=== PATIENT | male | born 1975 | race Caucasian/White ===

== ENCOUNTER 2016-08-03 22:15 | Emergency (ER) | payer BC ==
[~2016-08-03] VITALS: Ht 185.4 cm; Wt 80.8 kg
--- OUTSIDE RECORDS SUMMARY | 2016-08-03 22:28 | XMS REPORT | Referral Summary ---
Author Author [facility], [facility] Care Organization [facility] Address Unknown Phone Unavailable Care Team Providers Care Slots Manager Name Role Phone Stephen Cronin Primary Care Physician [phone] Encounter Date(s): 05/27/15 - 05/27/15 [facility] [address] [place] [id number] Discharge Diagnosis: Muscle strain of left gluteal region Discharge Diagnosis: Left buttock pain Discharge Disposition: 01-Home or Self Care Attending Physician: Pasha Hernandez PA-C Admitting Physician: Pasha Hernandez PA-C Vital Signs Most recent to 1 oldest [Reference Range]: Temperature Tympanic 36.7 degC [36.6-38.1 degC] (05/27/15 1:08 PM) Peripheral Pulse 101 bpm Rate [60-100 bpm] *HI* (05/27/15 1:08 PM) Blood Pressure 110/68 mmHg [90-140/60-90 mmHg] (05/27/15 1:08 PM) SpO2 97 % (05/27/15 1:08 PM) Problem List Condition Effective Dates Status Health Status Informant Neck pain(Confirmed) Resolved Pneumonia(Confirmed) 2005 Resolved Allergies, Adverse Reactions, Alerts Substance Reaction Severity Status clindamycin Active Medications ibuprofen 0 Refill(s) Start Date: 05/27/15 Status: Ordered Wellbutrin Oral, 0 Refill(s) Start Date: 05/27/15 Status: Ordered Results No data available for this section Immunizations No data available for this section Procedures Procedure Date Related Diagnosis Body Site Diskectomy1 2011 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 Patients can avoid activities to aggravate his symptoms, he does not have pain with weightbearing so no crutches were initiated. We'll increase ibuprofen to 600 mg3-4 times a day with food.Patient denied history of GI ulcers, indigestion history of hypertension or cardiac disease. He develops any of these he'll cease taking anti-inflammatory. I recommended follow-up with primary care still having significant discomfort or worsening discomfort in the next day or 2. If him a handout for stretch and strengthening exercises to begin in 7-10 days when his pain improves. Note was given for work as he missed work yesterday. Diagnosis and treatment discussed. Patient advised to follow up with PCP in 2- 3 days. Patient stable upon discharge, alert and orientated with no apparent distress, and indicated understanding of discharge instructions. If symptoms worsen at any time, patient will go to the nearest ER for further evaluation. Addendum I reviewed this chart, the patient's medical history, and the by Tressa, Resident's/PATIENT APPOINTMENT COORDINATOR's/PA/RN's/PharmD's documented findings, and concur with the assessment and Angelito Mitchell plan as above. 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
--- OUTSIDE RECORDS SUMMARY | 2016-08-03 22:28 | XMS REPORT | Referral Summary ---
Author Author [facility] Care Organization [facility] Address Unknown Phone Unavailable Care Team Providers Care Yeast Culture Developer Name Role Phone Stephen Cronin Primary Care Physician [phone] Encounter [facility] [id number] Date(s): 12/20/15 - 12/20/15 [facility] [address] [place] [address] Discharge Diagnosis: Sore throat Discharge Diagnosis: Left eye pain Discharge Diagnosis: Nausea Discharge Disposition: 01-Home or Self Care Attending Physician: Pasha Hernandez PA-C Admitting Physician: Pasha Hernandez PA-C Vital Signs Most recent to 1 oldest [Reference Range]: Temperature Tympanic 36.8 degC [36.6-38.1 degC] (12/20/15 2:24 PM) Peripheral Pulse 82 bpm Rate [60-100 bpm] (12/20/15 2:24 PM) Blood Pressure 110/74 mmHg [90-140/60-90 mmHg] (12/20/15 2:24 PM) SpO2 97 % (12/20/15 2:24 PM) Problem List Condition Effective Dates Status Health Status Informant Neck pain(Confirmed) Resolved Pneumonia(Confirmed) 2005 Resolved Allergies, Adverse Reactions, Alerts Substance Reaction Severity Status clindamycin Active Medications Excedrin tabs, Oral, q6hr, 0 Refill(s) Start Date: 12/20/15 Status: Ordered Tylenol Caplet mg, Oral, q4hr, 0 Refill(s) Start Date: 12/20/15 Status: Ordered Results No data available for this section Immunizations No data available for this section Procedures Procedure Date Related Diagnosis Body Site Diskectomy1 2011 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 A work note was provided. Nausea Currently resolved, patient declined need for antiemetic. Sore throat Recommended conservative treatment at this time; over the counterCepacol, Tylenol, push fluids. If he continues to have worsening symptoms, ifpain becomes worse, if he's unable to swallow; he needs to follow- up with his primary care for additional assessment and possible imaging.
--- OUTSIDE RECORDS SUMMARY | 2016-08-03 22:28 | XMS REPORT | Referral Summary ---
Author Author [facility] Care Organization [facility] Address Unknown Phone Unavailable Care Team Providers Care Defence Force Member Other Ranks Name Role Phone Stephen Cronin Primary Care Physician [phone] Encounter [facility] [id number] Date(s): 05/09/15 - 05/09/15 [facility] [address] [place] [id number] Discharge Diagnosis: Headache Discharge Diagnosis: Sore throat Discharge Disposition: 01-Home or Self Care Attending Physician: Pasha Hernandez PA-C Admitting Physician: Pasha Hernandez PA-C Vital Signs Most recent to 1 oldest [Reference Range]: Temperature Tympanic 36.6 degC [36.6-38.1 degC] (05/09/15 3:14 PM) Apical Heart Rate 85 bpm [60-100 bpm] (05/09/15 3:14 PM) Blood Pressure 118/74 mmHg [90-140/60-90 mmHg] (05/09/15 3:14 PM) SpO2 98 % (05/09/15 3:14 PM) Problem List Condition Effective Dates Status Health Status Informant Neck pain(Confirmed) Resolved Pneumonia(Confirmed) 2005 Resolved Allergies, Adverse Reactions, Alerts Substance Reaction Severity Status clindamycin Active Medications No Known Medications Results No data available for this section Immunizations No data available for this section Procedures Procedure Date Related Diagnosis Body Site Diskectomy1 2011 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
--- OUTSIDE RECORDS SUMMARY | 2016-08-03 22:28 | XMS REPORT | Referral Summary ---
Author Author [facility], [facility] Care Organization [facility] Address Unknown Phone Unavailable Care Team Providers Care Packing And Final Assembly Supervisor Name Role Phone Stephen Cronin Primary Care Physician [phone] Encounter Date(s): 06/01/16 - 06/01/16 [facility], [address] [place] [address] Discharge Disposition: 01-Home or Self Care Attending Physician: Pasha Hernandez PA-C Admitting Physician: Pasha Hernandez PA-C Vital Signs Most recent to 1 oldest [Reference Range]: Temperature Tympanic 36.7 degC [36.6-38.1 degC] (06/01/16 1:21 PM) Peripheral Pulse 83 bpm Rate [60-100 bpm] (06/01/16 1:21 PM) Blood Pressure 112/72 mmHg [90-140/60-90 mmHg] (06/01/16 1:21 PM) SpO2 95 % (06/01/16 1:21 PM) Problem List Condition Effective Dates Status Health Status Informant Neck pain(Confirmed) Resolved Pneumonia(Confirmed) 2005 Resolved Sinus Active infections(Confirmed ) Allergies, Adverse Reactions, Alerts Substance Reaction Severity Status clindamycin Active Medications Lotrisone 1%-0.05% topical cream 1 osvaldo, Topical, BID, prescribed by Dr. 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 This infection is not caused by worms, but is actually caused by a fungus. Fungus normally lives on the top of your skin and can be useful. However, in the case of ringworms, the fungus grows out of control and causes a skin infection. It can involve any area of skin on the body and can spread easily from one person to another (contagious). Ringworm is a common problem for children, but it can affect adults as well. Ringworm is also often found in athletes, especially wrestlers who share equipment and mats. CAUSES Ringworm of the body is caused by a fungus called dermatophyte. It can spread by : Touchingother people who are infected. Touchinginfected pets. Touching or sharingobjects that have been in contact with the infected person or pet (hats, case, towels, clothing, sports equipment). SYMPTOMS Itchy, raised red spots and bumps on the skin. Ring-shaped rash. Redness near the border of the rash with a clear center. Dry and scaly skin on or around the rash. Not every person develops a ring-shaped rash. Some develop only the red, scaly patches. DIAGNOSIS Most often, ringworm can be diagnosed by performing a skin exam. Your caregiver may choose to take a skin scraping from the affected area. The sample will be examined under the microscope to see if the fungus is present. TREATMENT Body ringworm may be treated with a topical antifungal cream or ointment. Sometimes, an antifungal shampoo that can be used on your body is prescribed. You may be prescribed antifungal medicines to take by mouth if your ringworm is severe, keeps coming back, or lasts a long time. HOME CARE INSTRUCTIONS Only take nbrw-orn-jiidudy or prescription medicines as directed by your caregiver. Wash the infected area and dry it completely before applying yourcream or ointment. When using antifungal shampoo to treat the ringworm, leave the shampoo on the body for 35 minutes before rinsing. Wear loose clothing to stop clothes from rubbing and irritating the rash. Wash or change your bed sheets every night while you have the rash. Have your pet treated by your applications systems engineer if it has the same infection. To prevent ringworm: Practice good hygiene. Wear sandals or shoes in public places and showers. Do not share personal items with others. Avoid touching red patches of skin on other people. Avoid touching pets that have bald spots or wash your hands after doing so. SEEK MEDICAL CARE IF: Your rash continues to spread after 7 days of treatment. Your rash is not gone in 4 weeks. The area around your rash becomes red, warm, tender, and swollen. This information is not intended to replace advice given to you by your health care provider. Make sure you discuss any questions you have with your health care provider. Document Released: 04/19/2001 Document Revised: 01/14/2013 Document Reviewed: [employer] Interactive Patient Education 2016 [employer] No follow up information was provided.
--- OUTSIDE RECORDS SUMMARY | 2016-08-03 22:28 | XMS REPORT | Referral Summary ---
Author Author [facility], [facility] Organization [facility] Address Unknown Phone Unavailable Care Team Providers Care Overhead Distribution Engineer Name Role Phone Stephen Cronin Primary Care Physician [phone] Encounter Date(s): 06/03/15 - 06/03/15 [facility] [address] [place] [address] Discharge Disposition: 01-Home or Self Care Attending Physician: Kishan Corea APRN Admitting Physician: Kishan Corea APRN Vital Signs Most recent to 1 oldest [Reference Range]: Temperature Tympanic 36.7 degC [36.6-38.1 degC] (06/03/15 1:23 PM) Peripheral Pulse 85 bpm Rate [60-100 bpm] (06/03/15 1:23 PM) Blood Pressure 122/62 mmHg [90-140/60-90 mmHg] (06/03/15 1:23 PM) SpO2 97 % (06/03/15 1:23 PM) Problem List Condition Effective Dates Status [...] use per day: Pack Assessment and Plan No data available for this section
--- OUTSIDE RECORDS SUMMARY | 2016-08-03 22:28 | XMS REPORT | Continuity of Care Document ---
Author Author [facility] Organization [facility] Address Unknown Phone Unavailable Allergies Active Description Code Type Severity Reaction Onset Reported/Identified Relationship to Patient Clinical Status Yes clindamycin NKMA N/A N/A 10/13/2013 Medications Problems Procedures Results Test Result Range ESAU - 06/01/16 13:39 Fluid Type Other NA Encounters ACCT No. Visit Date/Time Discharge Status Pt. Type Provider Facility Loc./Unit Complaint [id number] 06/01/2016 13:19:00 2016 23:59:00 DIS Outpatient Pasha Hernandez Via [facility] RASH [id number] 12/20/2015 14:16:00 2015 23:59:00 DIS Outpatient Pasha Hernandez [facility] SORE THROAT AND NAUSEA [id number] 08/26/2015 14:04:00 2015 23:59:00 DIS Outpatient Pasha Hernandez [facility] SORE THROAT AND HEADACHE [id number] 06/03/2015 13:12:00 2015 23:59:00 DIS Outpatient Kishan Corea [facility] HEADACHE [id number] 05/27/2015 13:02:00 2015 23:59:00 DIS Outpatient Pasha Hernandez [facility] HIP PAIN [id number] 05/09/2015 14:39:00 2015 23:59:00 DIS Outpatient Pasha Hernandez [facility] HEADACHE AND SINUS ISSUES
--- OUTSIDE RECORDS SUMMARY | 2016-08-03 22:28 | XMS REPORT | Referral Summary ---
Author Author [facility], [facility] Organization [facility] Address Unknown Phone Unavailable Care Team Providers Care Hydroelectric Powerplant Supervisor Name Role Phone Stephen Cronin Primary Care Physician [phone] Encounter Date(s): 08/26/15 - 08/26/15 [facility] [address] [place] [id number] Discharge Diagnosis: Viral URI Discharge Disposition: 01-Home or Self Care Attending Physician: Pasha Hernandez PA-C Admitting Physician: Pasha Hernandez PA-C Vital Signs Most recent to 1 oldest [Reference Range]: Temperature Tympanic 36.6 degC [36.6-38.1 degC] (08/26/15 2:06 PM) Peripheral Pulse 102 bpm Rate [60-100 bpm] *HI* (08/26/15 2:06 PM) Blood Pressure 104/72 mmHg [90-140/60-90 mmHg] (08/26/15 2:06 PM) SpO2 98 % (08/26/15 2:06 PM) Problem List Condition Effective Dates Status [...] Pack Assessment and Plan Extracted from: Title: sore throat, WASHBURN Author: Pasha Hernandez PA-C Date: 08/26/15 Assessment/Plan Viral URI Patient was given a note to return to work. If symptoms return follow-up for reassessment.
[2016-08-03] MEDS ORDERED: NO ROUTINE MEDS (22:34)
--- NOTE | 2016-08-03 22:43 | NUR ---
PT INFO SPOKE TO PT REGARDING STATEMENT MADE TO DAUGHTER ABOUT HURTING HIMSELF. PT REPORTS HE DID MOMENTARILY WANT TO HURT HIMSELF; HOWEVER, DENIES PLAN AT THIS TIME. PT STATES HE FEELS LIKE 'THINGS WERE SAID IN THE HEAT OF THE MOMENT'. WHEN ASKED IF HE'S HAD THESE FEELINGS TO HURT HIMSELF PRIOR TO THIS OCCURANCE, HE DENIES. HE DOES REPORT A HEIGHTENED SENSE OF STRESS OCCURRING AT HOME AND IN HIS LIFE RIGHT NOW INVOLVING HIS DAUGHTER. PT IS CALM, COOPERATIVE, AND SHOWS NO SIGN OF AGGRESSION OR AGITATION AT THIS TIME.
--- OUTSIDE RECORDS SUMMARY | 2016-08-03 22:46 | XMS REPORT | Continuity of Care Document ---
Author Author [facility] Organization [facility] Address Unknown Phone Unavailable Allergies Active Description Code Type Severity Reaction Onset Reported/Identified Relationship to Patient Clinical Status Yes clindamycin NKMA N/A N/A 10/13/2013 Medications Problems Procedures Results Test Result Range ESAU - 06/01/16 13:39 Fluid Type Other NA Encounters ACCT No. Visit Date/Time Discharge Status Pt. Type Provider Facility Loc./Unit Complaint [id number] 06/01/2016 13:19:00 2016 23:59:00 DIS Outpatient Pasha Hernandez [facility] RASH [id number] 12/20/2015 14:16:00 2015 23:59:00 DIS Outpatient Pasha Hernandez [facility] SORE THROAT AND NAUSEA [id number] 08/26/2015 14:04:00 2015 23:59:00 DIS Outpatient Pasha Hernandez [facility] SORE THROAT AND HEADACHE [id number] 06/03/2015 13:12:00 2015 23:59:00 DIS Outpatient Kishan Corea [facility] HEADACHE [id number] 05/27/2015 13:02:00 2015 23:59:00 DIS Outpatient Pasha Hernandez [facility] HIP PAIN [id number] 05/09/2015 14:39:00 2015 23:59:00 DIS Outpatient Pasha Hernandez [facility] HEADACHE AND SINUS ISSUES
[2016-08-03 23:13] VITALS: Ht 185.4 cm; Wt 80.8 kg
--- NOTE | 2016-08-03 23:27 | ERPDOC ---
Departure Disposition Decision Date: Aug 04, 2016 Disposition Decision Time: 00:05 Disposition: 01 DISCHARGED HOME, SELF-CARE Impression Impression Impression: Primary Impression: Suicidal thoughts Additional Impression: Adjustment disorder Adjustment disorder type: with mixed anxiety and depressed mood Qualified Codes: F43.23 - Adjustment disorder with mixed anxiety and depressed mood Severity: Moderate Condition: Improved Seen By: Physician only Referrals: MINH ESPINOZA DO (Family) 1 Week YOUR COUNSELOR 3 Days Patient Instructions: Suicide Prevention for Adults (ED) Problems/Meds/Labs Reviewed?: Yes Medications reviewed and manag: Yes Additional Instructions: You are having a normal reaction to an abnormal situation. For your own sake and the sake of your family, you need to follow up with a therapist who can help you deal with your current situation. If you have thoughts of harming yourself or others, you should discuss with your , call your therapist, call your doctor, call 911, call the suicide prevention hotline, or come to the ER. Follow up with your doctor in the next 1-2 weeks. Follow up care ordered?: Yes Mental Status: Alert, Oriented HPI - Psychosocial General Chief Complaint: Suicide Ideation/Attempt Stated Complaint: SUICIDAL THOUGHTS Time Seen by MD: 22:21 Source: patient, police, RN/MD Exam Limitations: no limitations HPI - Psychosocial Initial Comments 40yo man presented to the ER by PD for SI. Pt got into an argument with his daughter earlier citlali; he got so frustrated that he couldn't stand it anymore. Pt left the house and texted his that she could have his tools and that he was sorry. During a subsequent call, he told his that he was going to kill himself. Pt repeated same to the PD officer who responded. Initially, pt stated that he had a plan, but he would not divulge that plan to the responding officer or to his . Background: Pts ex left >10 years ago and took all of their children out of state. Pt was restricted from most contact with his children; pt could not get any relief through the courts. Ex- alienated all of the children from the pt. Fifteen months ago, pts daughter came to live with him and his . Pt initially placed appropriate boundaries around his daughter living with them, but she has steadily violated all of those boundaries. Pt is likely too aggressive with trying to renew this relationship with his now-adult daughter. (who is a counselor) has encouraged pt to seek counseling with daughter or on his own, since she is reluctant. Pt has not followed through with recommendations. Arguments and stress has spiraled since daughter came to live with them, and pt feels helpless again like when the children were first taken from him. All of this culminated in pts SI tonight. Pt does have a h/o SI, from when divorce/separation/alienation. He did attempt to take his life then with pills. He can articulate feelings from a splenic rupture several years ago, in which he nearly . That time, and knowing that he had no contact with his children and that they might without a chance of a relationship, has left a lasting impression on the pt. Occurred At: home Onset: Rapid Duration: 1-3 hrs Severity: moderate Associated Symptoms: suicidal ideation Hx of Similar Symptoms: Yes Allergies: Coded Allergies: clindamycin (Verified Allergy, Unknown, HIVES, 08/03/16) Past History Past Medical History Metabolic: hypercholesterolemia ENMT: dental problems Male: other Musculoskeletal: neck pain Psychological: depression, suicide attempt Surgical History General: neck Vaccines Hx Influenza Vaccination: No Hx Pneumococcal Vaccination: No Review of Systems Psychiatric Psychiatric: anxiety, depression, suicidal ideation/attempt All other Systems All Other Systems: Reviewed and Negative Physical Exam General General Nourishment: well nourished, well developed, appears stated age, no acute distress, adult, thin General Body Habitus: well groomed Vitals and Pain First Documented Vital Signs Date Time Temp Pulse Resp B/P Pulse Ox O2 Delivery O2 Flow Rate FiO2 08/03/16 22:36 82 148/70 96 Room Air 08/03/16 23:13 97.8 12 Weight: Kilograms: Height (feet): Height (inches): Triage Pain Scale: RN VS reviewed by Provider: Yes Normal Exams: Head: Normocephalic w/o trauma Eyes: Pupils are PERRLA w/ EOMI, No scleral icterus, irritation ENMT: No facial trauma, nasal exudates, pharyngeal erythema Neck: Full range of motion, without adenopathy, JVD Chest/Resp: Clear all jain, with good airflow, and symmetry bilaterally CV: Regular rate and rhythm, without murmur or gallop, Pulses 2+ all extremities Abdomen: Bowel sounds positive, soft, non-tender, non-distended Lymphatic: No lymphadenopathy Musculoskeletal: No tenderness, or deformity noted Integumentary: No rashes, hives, or bruising noted Neurologic: Patient is alert, and oriented Psychiatric: Patient exhibits, appropriate attention Differential Diagnoses Considering: Anxiety, Depression, Homicidal Ideation, Other Intoxication, Suicidal Ideation Progress Results/Orders Orders Procedure Category Date Status Time Ethanol LAB 08/03/16 Complete Drug Screen LAB 08/03/16 Complete Urine-Test At [place] 23:09 Lab Results Laboratory Tests Test 08/03/16 23:22 08/03/16 23:31 Alcohol, Quantitative <10MG/DL Urine Opiates Screen NegativeNG/ML Urine Oxycodone Screen NegativeNG/ML Urine Methadone Screen NegativeNG/ML Urine Propoxyphene Screen NegativeNG/ML Urine Barbiturates Screen NegativeNG/ML Urine Tricyclic Antidepressants NegativeNG/ML Urine Phencyclidine Screen NegativeNG/ML Urine Amphetamines Screen NegativeNG/ML Urine Methamphetamines Screen NegativeNG/ML Urine Benzodiazepines Screen NegativeNG/ML Urine Cocaine Screen NegativeNG/ML Urine Cannabinoids Screen NegativeNG/ML Progress Progress No SI/HI at this time. Pt is not intoxicated. Pt has contracted for safety; is in agreement with the plan. Will d/c pt to home with strong instructions to f/u with a therapist. Pt and voiced understanding and are in agreement with the plan. ADDY LOPEZ DO Aug 03, 2016 23:27
[2016-08-03 23:57] LABS: AMPHETAMINE SCREEN,URINE NEGATIVE; BARBITURATE SCREEN,URINE NEGATIVE; BENZODIAZEPINES SCREEN,URINE NEGATIVE; CANNABINOID SCREEN,URINE NEGATIVE; COCAINE SCREEN,URINE NEGATIVE; METHADONE SCREEN, URINE NEGATIVE; METHAMPHETAMINE SCREEN, URINE NEGATIVE; OPIATE SCREEN,URINE NEGATIVE; PHENCYCLIDINE SCREEN,URINE NEGATIVE; TRICYCLIC ANTIDEPRESSANT,URINE NEGATIVE
[2016-08-04 00:23] VITALS: BP 113/59; PULSE 77; RESP 16; TEMP 97.8; O2SAT 93
--- NOTE | 2016-08-04 00:23 | NUR ---
DEPART PT GIVEN DI FOR SUICIDE PREVENTION IN ADULTS, F/U. PT PROVIDED CARD FOR SUICIDE [facility]LINE AND [facility]. PT VERBALIZES UNDERSTANDING OF DI. QUESTIONS ASKED/ANSWERED - DENIES FURTHER QUESTIONS/NEEDS AT THIS TIME. PERSONAL BELONGINGS GATHERED AND RETURNED. PT AMBULATED/ESCORTED TO ED EXIT - GAIT STABLE, NO SIGN OF DISTRESS AT THIS TIME.
== END 2016-08-04 00:23 | disposition home or self-care (01) ==
LOC: ED 22:15
DX: F43.23 Adjustment disorder with mixed anxiety and depressed mood (principal)
CPT/HCPCS: 36415; 80306; 80307

== ENCOUNTER → 2016-08-22 | Outpatient (CLI) | payer BC ==
[~2016-08-22] MED LIST: NO ROUTINE MEDS
--- NOTE | 2016-08-23 08:34 | DI ---
Indication: ITS.REASON: M79.641 RIGHT HAND PAIN PROCEDURE: HAND RIGHT 3 VIEW: Encounter: Initial Comparison: None Findings: There is no acute fracture, dislocation or malalignment identified. Impression: No acute osseous abnormality. .
== END ==
LOC: IMA 16:56
PROVIDERS: ATTEND Family Medicine
DX: M79.641 Pain in right hand (principal)

== ENCOUNTER 2016-10-26 20:51 | Inpatient (IN) ==
[2016-10-26] MEDS ORDERED: NS 1,000 ML IV ONE (20:57)
[2016-10-26] MEDS ORDERED: ONDANSETRON 4 MG/2 ML INJECTION IVP ONE ×2 (20:57→22:34)
[2016-10-26] MEDS ORDERED: ACETYLCYSTEINE IV ONE ×2 (21:07→22:56)
[2016-10-26] MEDS ORDERED: D5W IV ONE ×2 (21:07→22:56)
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
[2016-10-26] MEDS ORDERED: KETOROLAC 30 MG/ML INJECTION IVP ONE (22:35)
[2016-10-26] MEDS ORDERED: NS 1,000 ML IV SCH (23:45)
[2016-10-27] MEDS: NS 1,000 ML IV SCH ×2 (01:32→13:56)
--- NOTE | 2016-10-27 02:52 | History & Physical Report ---
<Roberto Smart - Last Filed: 10/27/16 02:46> History of Present Illness Date: 10/27/16 Chief complaint: OD HPI: pleasant 41-year-old white male who this evening around 6;30 took 25 tablets of 5/325 mg of percocet. (8.125 grams of Tylenol) The percocets were his ' s from previous issues. this was an impulsive suicide attempt after interaction with his daughter. he denies any previous recent suicidal ideations and he denies making any plans to do this. when he was brought into the emergency room via ems his gcs was 14 satting 955 on room air and his heart rate was in the 50s. his tylenol level was undetectable, but based on the concern for his dose of greater than 8 g of tylenol, he was given a loading dose of n-acetylcysteine. he denies current suicidal ideations she is remorseful for the attempt. he in addition to his are providing history for me today. apparently he has a previous history of suicidal attempts. he denies a diagnosis history of depression or bipolar disorder. 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 - Social History Smoking status: Current every day smoker Packs per day: 2 Packs-years: 26 Substance use type: does not use Medications Home Medications Medication Instructions Recorded Confirmed Type NO ROUTINE MEDS #0 08/03/16 History Allergies Allergy/AdvReac Type Severity Reaction Status Date / Time clindamycin Allergy Unknown HIVES Verified 08/03/16 22:34 Exam Vital Signs: Temp Pulse Resp BP Pulse Ox 97.8 F 32 L 34 H 115/57 98 10/27/16 02:37 10/27/16 02:37 10/27/16 02:37 10/27/16 02:37 10/27/16 02:37 Telemetry Rhythm: Sinus Rhythm, A-fib with RVR, A-flutter Height: 1.85 m Weight: 75.8 kg Body Mass Index: 22.0 - Constitutional Present: no acute distress. Absent: combative, agitated - Routine HEENT Exam Head: Present: normocephalic, atraumatic Eye: Present: EOMI, PERRL. Absent: conjunctival icterus ENT: Present: mucous membranes moist - Routine Neck Exam Present: supple - Routine Respiratory Exam Present: CTA bilaterally. Absent: accessory muscle use - Routine Cardiovascular Exam Present: RRR, S1, S2 - Routine Abdominal Exam Present: soft, normoactive bowel sounds, non distended, non tender - Routine Extremities Exam Present: no edema. Absent: cyanosis, clubbing - Routine Neurological Exam Present: alert, oriented X3, CN II-XII intact - Routine Psychiatric Exam Present: normal affect (currently denies SI) Results - Labs CBC & Chem 7: 10/26/16 21:22 10/26/16 21:22 Assessment and Plan (1) Tylenol overdose Current visit: Yes Status: Acute his tylenol level was undetectable. the amount that he reportedly took was over 8 g, this would've been concerning for a toxic dose. however his 3 hour level was undetectable. a repeat in approximately 6 hours is also undetectable. going to discontinue the n-acetylcysteine at this time. monitor labs again in the morning. 10/27/16 03:03 (2) Suicide attempt Current visit: Yes Status: Acute he currently denies to me depression and denies any current suicidality. the amount of tylenol that he took certainly be enough to cause concern, however his tylenol level was undetectable. either he didn't take as much, he didn't take any, or it hasn't yet followed up which i think is unlikely as a repeat is also negative. 10/27/16 03:01 (3) Drug overdose Current visit: Yes Status: Acute (4) Opiate overdose Current visit: Yes Status: Acute there is a bit sleepy upon admission but his respiratory status was not compromised. 10/27/16 03:03 Sepsis Assessment - Evaluation Sepsis screening result: No Definite Risk Hospital Course Summary Disclaimer: The visit summary below is not to be considered part of the above Progress Note. <Jhony Tovar - Last Filed: 10/27/16 09:02> History of Present Illness Date: 10/27/16 [facility] Patient Stated Medical History Panic Disorder No Exam Vital Signs: Temp Pulse Resp BP Pulse Ox 97.8 F 51 L 10 96/53 98 10/27/16 02:37 10/27/16 06:45 10/27/16 06:45 10/27/16 06:30 10/27/16 06:45 Height: 6 ft 1 in Weight: 75.8 kg Results - Labs CBC & Chem 7: 10/27/16 06:11 10/27/16 06:11 Assessment and Plan (1) Drug overdose Current visit: Yes Status: Acute (2) Suicide attempt Current visit: Yes Status: Acute (3) Tylenol overdose Current visit: Yes Status: Acute (4) Opiate overdose Current visit: Yes Status: Acute Assessment and Plan: Pt was seen and examined and agree with above plan. Pt has some issues at home with his kids that recently moved out. He is a but is not a combat and denies H.O PTSD. He has a Psychologist that he follows with at [place] and takes celexa 20mg PO daily. Denies any H.O Thyroid illness. He is and his was in the room. VSS NC/AT TALA Chest clear RRR no murmurs Abdomen Soft NT/ND Ext no edema. Labs LFT's not elevated APAP level was not high. Pt got NAC by protoccol Plan 1) Suicidal gesture vs attempt. - Psych consult - Recheck LFT's in the AM - Start PO - If stable D/C Home tomorrow. - Check TSH due to bradycardia and depression. - Resume Celexa D/C Zofran. Hospital Course Summary Disclaimer: The visit summary below is not to be considered part of the above Progress Note.
[2016-10-27] MEDS ORDERED: ONDANSETRON 4 MG/2 ML INJECTION IVP PRN (03:07)
[2016-10-27] MEDS ORDERED: CITALOPRAM 20 MG TABLET PO SCH (09:00)
--- NOTE | 2016-10-27 12:38 | Neuropsychiatric Consult ---
[facility] Date: 10/27/16 Reason for Consultation: OD Start Time: 12:00 Stop Time: 12:30 History of Present Illness: HPI: 41 y/o cm admitted S/P OD on Percocet. Pt states he had an arguement with his daughter and just wanted to go to sleep. Pt states he is now very remorseful and states "it was dumb". Pt denies any S/I at this time and states he would not harm himself because of his family. STRESSORS: Arguement with daughter PSYCH ROS: Pt does report some depression but feels it is mild and situational. He denies feelings of hopelessness. Denies S/I. Reports some PIETER symptoms. Denies john or psychosis. PAST PSYCH: Pt has been seeing a therapist in [place] and is prescribed Celexa by his PCP. He denies ever trying to harm himself and has never been in a psychiatric hospital. SUBSTANCE ABUSE: Denies COLLATERAL: Spoke with patients privately who is a therapist. She states she feels the pt is safe to go home and she will help ensure his safety. No weapons or stock piled meds in the home. [facility] Patient Stated Medical History Panic Disorder No Surgical History: Splenectomy - Social History Smoking status: Current every day smoker Substance use type: does not use Review of Systems - Constitutional Constitutional: Present: as per HPI - Psychiatric Psychiatric: Present: as per [facility] Mental Status Exam Vitals: Last Vital Signs Temp 97.7 F 10/27/16 10:00 Pulse 58 L 10/27/16 12:00 Resp 51 H 10/27/16 12:00 BP 113/70 10/27/16 12:00 Pulse Ox 99 10/27/16 12:00 Height: 1.85 m Weight: 75.8 kg - Mental Status Exam Muscle Strength/Tone: Normal Dressing: Casual Grooming: Good Attitude: Cooperative Motor Activity: Normal Eye Contact: Good Speech: Normal Volume: Normal Rhythm: Appropriate Rhythm Orientation: Oriented X4 Mood: Neutral Affect: Depressed Rate of Thoughts: Appropriate Rate Thought Organization: Organized Associations: Intact Abstract Reasoning: Intact, able to abstract Computation: Intact Thought Content: Normal Perception/Psychotic: Perception Normal Fund of Knowledge: Appropriate Memory: Grossly Intact Suicidal Ideation: Denies Homicidal Ideation: Denies Insight: Good Judgement: Good Impulse Control: Good - Laboratory Result Diagrams: 10/27/16 06:11 10/27/16 06:11 Laboratory Results - last 24 hr 10/27/16 10/27/16 10/27/16 00:49 04:33 06:11 WBC RBC Hgb Hct MCV MCH MCHC RDW Std Deviation Plt Count MPV Immature Gran % (Auto) Neut % (Auto) Lymph % (Auto) [place] % (Auto) Eos % (Auto) Baso % (Auto) Neut # Lymph # [place] # Baso # Abs Immat Gran (auto) Neutrophils % (Manual) Band Neutrophils % Lymphocytes % (Manual) Monocytes % (Manual) Eosinophils % (Manual) Neutrophils # (Manual) Band Neutrophils # Lymphocytes # (Manual) Monocytes # (Manual) Eosinophils # (Manual) RBC Morph Comment Turbidity < 20 Sodium 144 Potassium 4.2 Chloride 105 Carbon Dioxide 30 Anion Gap 9 BUN 10.0 Creatinine 0.8 GFR Calculation 106 BUN/Creatinine Ratio 13 Glucose 87 Calculated Osmolality 275 Calcium 9.2 Total Bilirubin 0.70 Icterus Index < 2 AST 16 L ALT 36 Alkaline Phosphatase 68 D Total Protein 5.9 L Albumin 3.5 Globulin 2.4 Albumin/Globulin Ratio 1.5 TSH 2.11 Specimen Hemolysis < 15 Acetaminophen < 10 L 10/27/16 06:11 WBC 12.2 H RBC 5.28 Hgb 15.9 Hct 45.6 MCV 86.4 MCH 30.1 MCHC 34.9 RDW Std Deviation 46.6 Plt Count 335 MPV 10.4 Immature Gran % (Auto) Not performed Neut % (Auto) Not performed Lymph % (Auto) Not performed [place] % (Auto) Not performed Eos % (Auto) Not performed Baso % (Auto) Not performed Neut # Not performed Lymph # Not performed [place] # Not performed Baso # Not performed Abs Immat Gran (auto) Not performed Neutrophils % (Manual) 52.0 Band Neutrophils % 1.0 Lymphocytes % (Manual) 39.0 Monocytes % (Manual) 7.0 Eosinophils % (Manual) 1.0 Neutrophils # (Manual) 6.3 Band Neutrophils # 0.1 Lymphocytes # (Manual) 4.8 Monocytes # (Manual) 0.9 H Eosinophils # (Manual) 0.1 RBC Morph Comment Normal Turbidity Sodium Potassium Chloride Carbon Dioxide Anion Gap BUN Creatinine GFR Calculation BUN/Creatinine Ratio Glucose Calculated Osmolality Calcium Total Bilirubin Icterus Index AST ALT Alkaline Phosphatase Total Protein Albumin Globulin Albumin/Globulin Ratio TSH Specimen Hemolysis Acetaminophen Assessment and Plan (1) Adjustment disorder with depressed mood Current visit: Yes Status: Acute Discharge pt home. Both patient and feel pt is safe for D/C.
--- NOTE | 2016-10-27 14:22 | Discharge Summary ---
Discharge Information Date of admission: 10/26/16 23:55 Attending Physician: Jhony Tovar MD Primary care physician: Lesley Cronin DO Consults: 10/27/16 08:58 Physician Consult [CONS] Routine Consulting Provider: Paulina Zavala Reason For Exam: SUICIDAL ATTEMPT Ordering Provider has Notified Continuous Process [employer] [employer] Drum: Yes Comment: Notified [facility] - Discharge Diagnosis (1) Drug overdose Qualifiers: Encounter type: initial encounter Injury intent: intentional self-harm Qualified Code(s): T50.902A - Poisoning by unspecified drugs, medicaments and biological substances, intentional self-harm, initial encounter Status: Acute (2) Suicide attempt Status: Acute (3) Tylenol overdose Status: Acute (4) Opiate overdose Status: Acute - Laboratory Labs: 10/27/16 06:11 10/27/16 06:11 History of Present Illness HPI: pleasant 41-year-old white male who this evening around 6;30 took 25 tablets of 5/325 mg of percocet. (8.125 grams of Tylenol) The percocets were his ' s from previous issues. this was an impulsive suicide attempt after interaction with his daughter. he denies any previous recent suicidal ideations and he denies making any plans to do this. when he was brought into the emergency room via ems his gcs was 14 satting 955 on room air and his heart rate was in the 50s. his tylenol level was undetectable, but based on the concern for his dose of greater than 8 g of tylenol, he was given a loading dose of n-acetylcysteine. he denies current suicidal ideations she is remorseful for the attempt. he in addition to his are providing history for me today. apparently he has a previous history of suicidal attempts. he denies a diagnosis history of depression or bipolar disorder. Hospital Course Hospital course: Pt was evaluated by Psychiatry was deemed to be not a risk for suicide. He feels fine and is tolerating well PO. Plan 1) Suicidal gesture vs attempt. - Recheck LFT's @ 15:00 if OK pt may go home and recheck with his PCP on Saturday - Resume Celexa D/C Zofran. Discharge Plan - Med Rec/Dispo Prescriptions: New Citalopram [Celexa] 20 mg PO DAILY Discontinued NO ROUTINE MEDS #0 Discharge Instructions/Outpatient Orders: Final Provider Discharge Instructions Location: Determined By Patient - Disposition 01 Discharged Home, Self-Care
--- NOTE | 2016-10-28 13:30 | XRay Report ---
Indication: OD PROCEDURE: XR chest 1V: Encounter: Initial Comparison: May 23, 2013 Findings: The lungs are stable in appearance without new focal airspace consolidation. There is no pleural effusion or pneumothorax. The heart size, pulmonary vascularity and mediastinal contours are unchanged. IMPRESSION: Stable appearance of the chest without acute cardiopulmonary disease. .
== END 2016-10-27 17:50 | disposition home or self-care (01) | DRG 918 ==
LOC: ED 20:51 → CCU 23:55
PROVIDERS: ADMIT Pediatrics; ATTEND Internal Medicine